=== PATIENT | female | born 1970 | race Caucasian/White ===

== ENCOUNTER 2020-09-25 12:33 | Emergency (ER) | payer OTHER, SELFPAY ==
--- NOTE | ~2020-09-25 | XR_ITS ---
EXAMINATION: XR shoulder RT min 2V INDICATION: Right shoulder pain TECHNIQUE: Four views of the right shoulder are submitted. COMPARISON: None FINDINGS: Normal alignment. No fracture. Glenohumeral and acromioclavicular joint spaces are normal. There is a nodular density projecting over the right breast/axilla of unclear location. IMPRESSION: 1. No acute osseous abnormality. 2. Nodular density of unclear location projecting over the right breast/axilla. Recommend screening m ammogram if not recently performed. Reviewed, dictated and finalized at location A. IMPRESSION: 1. No acute osseous abnormality. 2. Nodular density of unclear location projecting over the right breast/axilla. Recommend screening mammogram if not recently performed.
--- NOTE | ~2020-09-25 | XR_ITS ---
EXAMINATION:[id number] DATE: 09/25/2020 13:55 INDICATION: Neck pain TECHNIQUE: AP, lateral, and odontoid views of the cervical spine are provided. COMPARISON: None FINDINGS: Alignment is normal. The odontoid is intact. No fracture is identified. The vertebral body heights are normal. There is mild loss of intervertebral disc space height at C5-6. Prevertebral soft tissues are normal. IMPRESSION: 1. Mild cervical spondylosis without acute findings. Reviewed, dictated and finalized at location A.
[2020-09-25 12:47] VITALS: BP 132/74; PULSE 87; RESP 18; TEMP 36.8; O2SAT 98
--- NOTE | 2020-09-25 13:35 | ED.UPPEXIN ---
HPI - Extremity Injury (Upper) General Chief Complaint: Extremity Injury, Upper Stated Complaint: shoulder pain Time Seen by Provider: 09/25/20 13:36 Source: patient Mode of arrival: ambulatory Limitations: no limitations History of Present Illness HPI narrative: Gris Sahni is a 50 yo female with a PMH of depression who comes to [facility] complaining of right posterior shoulder pain that radiates into her biceps. Has gotten worse in the last 3 days since she flew from [place] to come visit on vacation. 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 She has gained considerable amount of weight in the last few months and few months ago she developed acute shortness of breath and was worked up by masonry inspector and pharmacy operations specialist. She had both a stress test, and echocardiogram, and pulmonary function tests which were all clear. Related Data Home Medications Medication Instructions Recorded Confirmed bupropion HCl [Wellbutrin XL] 150 mg PO QAM 09/25/20 09/25/20 norethindrone acetate 5 mg PO DAILY 09/25/20 09/25/20 sertraline 100 mg PO DAILY 09/25/20 09/25/20 Allergies Allergy/AdvReac Type Severity Reaction Status Date / Time No Known Allergies Allergy Unknown Verified 11/22/04 17:08 clarithromycin AdvReac Mild NIGHTMARES Verified 09/25/20 13:03 Review of Systems Review of Systems: Narrative: CONSTITUTIONAL: Denies fever, chills, sweats. EYES: Denies visual changes, redness, discharge. ENT: Denies rhinorrhea, congestion, sore throat, otalgia. CARDIOVASCULAR: Denies chest pain, palpitations, edema. RESPIRATORY: Denies dyspnea, wheezing, cough GASTROINTESTINAL: Denies abdominal pain, nausea, vomiting, diarrhea. GENITOURINARY: Denies dysuria, hematuria, abnormal discharge SKIN: Denies rash or itching. NEUROLOGIC: Denies numbness, or focal weakness. PSYCHIATRIC: Denies anxiety or depression. Right posterior shoulder pain with pain into her right bicep PMFSH Past Medical History Medical History Depression Social History Social History Smoking status: Never smoker Alcohol intake: current Gender identity (if verbalized by the patient): Female Comments At time of signature, I agree with nursing past medical, surgical, social and family history. There is no relevant family history pertinent to the presenting complaint. Exam Narrative: Exam Narrative: GENERAL: This is a well-nourished, well-developed patient, in mild distress. HEAD: normocephalic, atraumatic. EYES: Sclera clear/white. Vision is grossly intact. EARS: External ears normal, . Hearing grossly intact. NOSE: External nose normal without nasal discharge, nares without redness, no rhinorrhea. THROAT: Mucous membranes moist, NECK: Neck supple, non-tender CARDIOVASCULAR: Regular rate and rhythm without murmurs, gallops, or rubs. RESPIRATORY: Clear to auscultation. Breath sounds equal bilaterally. No wheezes, rales, or rhonchi. GASTROINTESTINAL: not performed SKIN: warm, intact with no suspicious lesions or rash, good texture and turgor. NEURO: awake, alert, and oriented to person, place and time. There were no obvious focal neurologic abnormalities. Steady gait EXTREMITIES: Normal range of motion. Able to lift arm overhead and touch upper back without pain but states feels tight there is a knot in her posterior right shoulder on the upper scapula that is tender when pressed and states that that tightness runs over the top of her shoulder and into her biceps she is able to move her neck in all directions but has tightness also with that movement BACK: Nontender without deformity Course Course Emergency Course: Patient comes to [facility] with complaints of r
== END 2020-09-25 14:02 | disposition home or self-care (01) ==
PROVIDERS: Emergency Provider Nurse Practitioner
DX: M25.511 Pain in right shoulder (principal); F32.9 Major depressive disorder, single episode, unspecified
CPT/HCPCS: 72040; 73030; 99214; G0463

== ENCOUNTER 2021-05-29 14:40 | Emergency (ER) | payer OTHER, SELFPAY ==
[2021-05-29 14:53] VITALS: BP 134/78; PULSE 74; RESP 18; TEMP 36.3; O2SAT 99
--- NOTE | 2021-05-29 15:19 | ED.ABDPAIN ---
HPI - Abdominal Pain General Chief Complaint: Abdominal Pain Stated Complaint: Abdominal Pain Time Seen by Provider: 05/29/21 15:02 Source: patient and RN notes reviewed Mode of arrival: ambulatory Limitations: no limitations History of Present Illness HPI narrative: Patient presents today complaining of periumbilical abdominal pain that was present when she woke up this morning. She also reports low back pain and intermittent nausea that started approximately 1 hour prior to arrival. Denies vomiting or any urinary symptoms. She has had 2 bowel movements today, denies diarrhea. She currently rates her pain 7/10. She took a dose of [place] at 8:00 this morning and a dose of Advil 3 hours prior to arrival. Neither provided any relief. History of irritable bowel syndrome and endometriosis. Patient is currently menstruating, but is wearing a menstrual cup. MD elicited complaint: abdominal pain Related Data Home Medications Medication Instructions Recorded Confirmed bupropion HCl [Wellbutrin XL] 150 mg PO QAM 09/25/20 05/29/21 norethindrone acetate 5 mg PO DAILY 09/25/20 05/29/21 fluoxetine 20 mg PO DAILY 05/29/21 05/29/21 Allergies Allergy/AdvReac Type Severity Reaction Status Date / Time clarithromycin AdvReac Mild NIGHTMARES Verified 05/29/21 15:07 Review of Systems Review of Systems: CONSTITUTIONAL: Denies body aches, fever, chills, or sweats. EYES: Denies visual changes, redness, or discharge. ENT: Denies rhinorrhea, congestion, sore throat, or otalgia. CARDIOVASCULAR: Denies chest pain, palpitations, or edema. RESPIRATORY: Denies cough or dyspnea. GASTROINTESTINAL: Denies vomiting, or diarrhea.+ Abdominal pain, nausea GENITOURINARY: Denies dysuria or hematuria. SKIN: Denies rash, itching, or wounds. MUSCULOSKELETAL: Denies joint pain, or myalgia.+ Low back pain NEUROLOGIC: Denies headache, numbness, tingling, or weakness. PSYCH: Denies depression or anxiety. [facility] Past Medical History Medical History (Updated 05/29/21 @ 15:35 by Ernestine Harris, DATA ADMINISTRATOR, ) Depression Endometriosis Irritable bowel syndrome Social History Social History Smoking status: Never smoker Alcohol intake: current Gender identity (if verbalized by the patient): Female Comments At time of signature, I have reviewed and agree with nursing past medical, surgical, social and family history unless otherwise noted. Please see nursing chart for further information. There is no relevant family history pertinent to the presenting complaint Exam Narrative: GENERAL: Well-appearing, well-nourished, and in no acute distress. HEAD: Normocephalic, atraumatic. EYES: EOMI. No redness or drainage. Conjunctivae normal. ENT: Mucous membranes pink and moist. NECK: Normal AROM. CHEST: No respiratory distress. Clear to auscultation. HEART: Regular rate and rhythm. No murmur appreciated. Normal peripheral pulses. ABDOMEN: Soft, nondistended, normal active bowel sounds. Patient's entire abdomen was nontender to palpation.-CVAT. MUSCULOSKELETAL: No bony tenderness. No tenderness of the low back. EXTREMITIES: Normal range of motion. No edema. SKIN: Warm, dry, no rash. Capillary refill normal. Normal skin turgor. NEURO: No focal deficits. Alert and oriented x3. Gait steady. PSYCH: Normal affect. No signs of depression or anxiety. Course Course Emergency Course: Patient's exam was normal and she was nontender throughout her entire abdomen, had no CVA tenderness and no low back tenderness. Based on her urine results, I will go ahead and treat her for UTI and for her nausea. Anticipatory guidance given for her to go to the ER if her symptoms worsen. Level of Care: Express Care Visit Vital Signs Vital signs: Vital Signs Temperature 97.4 F L 05/29/21 14:53 Pulse Rate 74 05/29/21 14:53 Respiratory Rate 18 05/29/21 14:53 Blood Pressure 134/78 05/29/21 14:53 Pulse O
== END 2021-05-29 15:27 | disposition home or self-care (01) ==
PROVIDERS: Emergency Provider Nurse Practitioner
DX: N30.01 Acute cystitis with hematuria (principal); N80.9 Endometriosis, unspecified; F32.A Depression, unspecified
CPT/HCPCS: 81003; 87086; 99213; G0463

== ENCOUNTER 2022-02-07 12:51 | Emergency (ER) | payer OTHER, SELFPAY ==
[2022-02-07 13:03] VITALS: BP 124/76; PULSE 72; RESP 18; TEMP 36.6; O2SAT 98
--- NOTE | 2022-02-07 13:07 | ED.SKABFB ---
HPI - Skin/Abscess/Foreign Bdy General Chief complaint: Skin/Abscess/Foreign Body Stated complaint: Itching all Over Body Time Seen by Provider: 02/07/22 13:05 Source: patient Mode of arrival: ambulatory Limitations: no limitations History of Present Illness HPI narrative: Ms. Sahni is a 51-year-old female patient presenting to clinic today with complaints of itching and rash on her body. She reports that this started 2 days ago. She feels as though her skin is itching all over and she started developing a rash to her upper chest. She denies any environmentally changes, new foods, new medications, or stress. She denies any shortness of breath or chest pain Related Data Home Medications Medication Instructions Recorded Confirmed bupropion HCl 150 mg 24 hr tablet, 150 mg PO QAM 09/25/20 02/07/22 extended release (Wellbutrin XL) norethindrone acetate 5 mg tablet 5 mg PO DAILY 09/25/20 02/07/22 fluoxetine 20 mg capsule 20 mg PO DAILY 05/29/21 02/07/22 Allergies Allergy/AdvReac Type Severity Reaction Status Date / Time clarithromycin AdvReac Mild NIGHTMARES Verified 02/07/22 13:11 Review of Systems Review of Systems: Pertinent positives per HPI. Patient denies any fever, chills, headache, visual changes, dizziness, cough, runny nose, sore throat, shortness of breath, chest pain, palpitations, nausea, vomiting, diarrhea, constipation, abdominal pain, or any urinary issues. [facility] Past Medical History Medical History Depression Endometriosis Irritable bowel syndrome Social History Social History Smoking status: Never smoker Alcohol intake: current Gender identity (if verbalized by the patient): Female Comments At the time of my signature, I reviewed and agree with the nursing past medical, surgical, social, and family history. There is no relevant family history pertinent to the patient complaint. Exam Narrative: General: Well-developed, well nourished, in no apparent distress Head: Normocephalic, atraumatic. Cardio: Regular rate and rhythm, s1 and s2 normal, no murmur appreciated. Resp: Clear to auscultation bilaterally, no rhonchi, rales, wheezing or rubs. Integumentary: [place], warm, and dry, intact without lesion, red elevated itchy rash to the upper chest, no blistering or discharge noted, skin is dry Course Course Emergency Course: Portions of this record may have been created with voice recognition software. Level of Care: Express Care Visit Vital Signs Vital signs: Vital Signs Temperature 36.6 C 02/07/22 13:03 Pulse Rate 72 02/07/22 13:03 Respiratory Rate 18 02/07/22 13:03 Blood Pressure 124/76 02/07/22 13:03 Pulse Oximetry 98 02/07/22 13:03 Oxygen Delivery Room Air 02/07/22 13:03 Temperature 36.6 C 02/07/22 13:03 Pulse Rate 72 02/07/22 13:03 Respiratory Rate 18 02/07/22 13:03 Blood Pressure 124/76 02/07/22 13:03 Pulse Oximetry 98 02/07/22 13:03 Oxygen Delivery Room Air 02/07/22 13:03 Vital signs reviewed MDM - Skin/Abscess/Foreign Bdy MDM Narrative Medical decision making narrative: at the time of visit patient is resting comfortably on exam table. I suspect the patient has dry skin dermatitis versus idiopathic dermatitis. I will send in a prescription for some prednisone and Vistaril for itching. Supportive measures were discussed with the patient she voiced understanding of discharge instructions and agrees to treatment plan. Differential Diagnosis Differential diagnosis: Likely abscess of skin or subcutaneous tissue, viral exanthem, urticaria, allergic reaction to drug, eczema and contact dermatitis Discharge Plan Discharge Clinical Impression: Dermatitis Patient Disposition: Home, Self-Care Condition: Stable Instructions: Antibiotic Form, Dermatitis (ED) Additional Instructions: Moist d
== END 2022-02-07 13:19 | disposition home or self-care (01) ==
PROVIDERS: Emergency Provider Nurse Practitioner Family
DX: L30.9 Dermatitis, unspecified (principal); F32.A Depression, unspecified; N80.9 Endometriosis, unspecified
CPT/HCPCS: 99213; G0463